=== PATIENT | female | born 1960 | race African-American/Black ===

== ENCOUNTER → 2017-04-13 | Outpatient (CLI) | payer BC ==
[~2017-04-13] MED LIST: FLUT16SP15 INH; IBUP-2029 PO; METH-612 PO
[2017-04-13 09:34] LABS: CARBON DIOXIDE 29 mEq/L (21-32); CHLORIDE 107 mEq/L (98-107); HDL CHOLESTEROL 83 mg/dL (40-59); LDL CHOLESTEROL 139 mg/dL (5-100)
== END | disposition home or self-care (01) ==
LOC: LAB 08:37
PROVIDERS: ATTEND Family Medicine Adult Medicine
DX: I10 Essential (primary) hypertension (principal); E78.5 Hyperlipidemia, unspecified
CPT/HCPCS: 36415; 80048; 80061

== ENCOUNTER → 2017-05-17 | Outpatient (CLI) | payer BC | END | disposition home or self-care (01) | LOC: MRI 13:46 | PROVIDERS: ATTEND Family Medicine Adult Medicine | DX: M17.12 Unilateral primary osteoarthritis, left knee (principal); M25.462 Effusion, left knee; M94.262 Chondromalacia, left knee | CPT/HCPCS: 73721 ==

== ENCOUNTER 2017-08-17 07:39 | Inpatient (IN) | payer BC ==
[~2017-08-17] VITALS: Ht 172.7 cm; Wt 124.3 kg
[2017-08-17] MEDS ORDERED: ONDANSETRON HCL 4MG/2ML VIAL IV ONE (08:30)
[2017-08-17 08:46] LABS: CHLORIDE 103 mEq/L (98-107)
[2017-08-17 08:51] LABS: BASOPHILS % 0.7 % (0.0-2.0); EOSINOPHILS % 3.7 % (0.0-5.0); HEMOGLOBIN. 12.9 g/dL (12.0-16.0); LYMPHOCYTES % 40.2 % (20.0-50.0); MEAN CORPUSCULAR HEMOGLOBIN 23.5 pg (28.0-32.0); MEAN CORPUSCULAR VOLUME 73.1 fL (81.0-99.0); MEAN PLATELET VOLUME 8.1 fl (7.4-10.4); MONOCYTES % 5.9 % (2.0-8.0); NEUTROPHILS % 49.5 % (40.0-76.0); PLATELET 301 x1000/uL (130-400); RED BLOOD CELL COUNT 5.47 mill/uL (4.2-5.4); RED CELL DISTRIBUTION WIDTH 18.5 % (11.6-14.6)
[2017-08-17 08:54] LABS: CARBON DIOXIDE 29 mEq/L (21-32)
[2017-08-17 09:45] LABS: CLARITY URINE CLEAR (CLEAR); COLOR URINE YELLOW (YELLOW); GLUCOSE URINE NEGATIVE (NEGATIVE); KETONES URINE NEGATIVE (NEGATIVE); LEUKOCYTE ESTERASE URINE NEGATIVE (NEGATIVE); NITRITE URINE NEGATIVE (NEGATIVE); OCCULT BLOOD URINE NEGATIVE (NEGATIVE); PH URINE 6.5 (4.5-8.0); PROTEIN URINE NEGATIVE (NEGATIVE); SPECIFIC GRAVITY URINE 1.009 (1.005-1.030); UROBILINOGEN URINE 0.2 E.U./dL (0.2-1.0)
[2017-08-17 12:00] VITALS: BP 111/66
[2017-08-17] MEDS ORDERED: ACETAMINOPHEN 325MG TABLET PO PRN (13:00)
[2017-08-17] MEDS ORDERED: ONDANSETRON HCL 4MG/2ML VIAL IV PRN (13:00)
[2017-08-17 13:54] VITALS: BP 116/64
[2017-08-17] MEDS ORDERED: TRIZANIDINE PO (14:59)
[2017-08-17] MEDS ORDERED: TELM80TA5 PO (15:02)
[2017-08-17] MEDS ORDERED: HYDR12.529 PO (15:04)
[2017-08-17] MEDS: ENOXAPARIN 30MG/0.3ML SYR SUBCUT SCH ×2 (15:16→19:40)
[2017-08-17] MEDS ORDERED: IBUPROFEN 600MG TABLET PO PRN (15:45)
[2017-08-17 16:00] VITALS: BP 118/71
[2017-08-17] MEDS ORDERED: TELMISARTAN 40 MG PO SCH (17:00)
[2017-08-17] MEDS ORDERED: FLUTICASONE PROPIONATE 50MCG/SPRAY BOTTLE BOTHNSTRLS PRN (17:00)
[2017-08-17] MEDS: MAGNESIUM/ALUMINUM HYDROXIDE/SIMETHICONE 30ML UDC PO PRN (19:39)
[2017-08-17] MEDS: LOSARTAN POTASSIUM 50 MG TABLET PO SCH (19:40)
[2017-08-17 20:00] VITALS: BP 108/41
[2017-08-18] VITALS (7 sets, daily range): BP systolic 97–129; BP diastolic 34–62
[2017-08-18] MEDS: MAGNESIUM/ALUMINUM HYDROXIDE/SIMETHICONE 30ML UDC PO PRN (04:12)
[2017-08-18 06:41] LABS: BASOPHILS % 0.7 % (0.0-2.0); EOSINOPHILS % 4.3 % (0.0-5.0); HEMATOCRIT. 38.5 % (36.0-48.0); HEMOGLOBIN. 12.5 g/dL (12.0-16.0); LYMPHOCYTES % 42.4 % (20.0-50.0); MEAN CORPUSCULAR HEMOGLOBIN 24.1 pg (28.0-32.0); MEAN PLATELET VOLUME 8.6 fl (7.4-10.4); MONOCYTES % 4.9 % (2.0-8.0); NEUTROPHILS % 47.7 % (40.0-76.0); PLATELET 295 x1000/uL (130-400); RED CELL DISTRIBUTION WIDTH 18.4 % (11.6-14.6)
[2017-08-18 07:35] LABS: CARBON DIOXIDE 29 mEq/L (21-32); CHLORIDE 102 mEq/L (98-107); TROPONIN I < 0.02 ng/mL (0.00-0.04)
[2017-08-18] MEDS: ENOXAPARIN 30MG/0.3ML SYR SUBCUT SCH ×2 (08:28→21:25)
[2017-08-18] MEDS: LOSARTAN POTASSIUM 50 MG TABLET PO SCH (09:00)
[2017-08-18] MEDS ORDERED: NA PHOS,M-B/NA PHOS,DI-BA ENEMA 118ML PR PRN (09:30)
[2017-08-18] MEDS ORDERED: LACTULOSE 20G/30ML UDC PO PRN (09:30)
[2017-08-18] MEDS: DOCUSATE SODIUM 100MG CAPSULE PO SCH ×2 (09:46→16:33)
[2017-08-18] MEDS ORDERED: HYDROCHLOROTHIAZIDE 12.5MG CAPSULE PO SCH (12:30)
[2017-08-18] MEDS ORDERED: BACLOFEN 10MG TABLET PO SCH (14:30)
[2017-08-19] VITALS (8 sets, daily range): BP systolic 100–140; BP diastolic 45–77
[2017-08-19 06:01] LABS: BASOPHILS % 0.6 % (0.0-2.0); EOSINOPHILS % 4.3 % (0.0-5.0); HEMATOCRIT. 38.4 % (36.0-48.0); HEMOGLOBIN. 12.4 g/dL (12.0-16.0); LYMPHOCYTES % 38.5 % (20.0-50.0); MEAN CORPUSCULAR HEMOGLOBIN 23.9 pg (28.0-32.0); MEAN CORPUSCULAR VOLUME 74.1 fL (81.0-99.0); MEAN PLATELET VOLUME 8.4 fl (7.4-10.4); MONOCYTES % 6.4 % (2.0-8.0); NEUTROPHILS % 50.2 % (40.0-76.0); PLATELET 287 x1000/uL (130-400); RED BLOOD CELL COUNT 5.19 mill/uL (4.2-5.4); RED CELL DISTRIBUTION WIDTH 18.2 % (11.6-14.6)
[2017-08-19 06:23] LABS: CHLORIDE 103 mEq/L (98-107)
[2017-08-19 06:40] LABS: CARBON DIOXIDE 30 mEq/L (21-32)
[2017-08-19] MEDS: DOCUSATE SODIUM 100MG CAPSULE PO SCH ×2 (08:39→16:40)
[2017-08-19] MEDS: LOSARTAN POTASSIUM 50 MG TABLET PO SCH (08:39)
[2017-08-19] MEDS: ENOXAPARIN 30MG/0.3ML SYR SUBCUT SCH ×2 (08:42→20:09)
[2017-08-19] MEDS: ACETAMINOPHEN 325MG TABLET PO PRN ×2 (11:45→20:10)
[2017-08-19 12:14] LABS: AMMONIA 30 uMol/L (<32)
[2017-08-20] VITALS (7 sets, daily range): BP systolic 102–147; BP diastolic 38–78
[2017-08-20] MEDS: ACETAMINOPHEN 325MG TABLET PO PRN (03:39)
[2017-08-20] MEDS: DOCUSATE SODIUM 100MG CAPSULE PO SCH ×2 (08:57→16:48)
[2017-08-20] MEDS: LOSARTAN POTASSIUM 50 MG TABLET PO SCH (08:57)
[2017-08-20] MEDS: ENOXAPARIN 30MG/0.3ML SYR SUBCUT SCH ×2 (08:59→20:13)
[2017-08-20] MEDS: BACLOFEN 10MG TABLET PO PRN (20:13)
[2017-08-21] VITALS: BP 117/38
[2017-08-21 04:00] VITALS: BP 106/55
[2017-08-21 06:15] LABS: BASOPHILS % 0.4 % (0.0-2.0); EOSINOPHILS % 3.5 % (0.0-5.0); HEMATOCRIT. 38.9 % (36.0-48.0); HEMOGLOBIN. 12.4 g/dL (12.0-16.0); MEAN CORPUSCULAR HEMOGLOBIN 23.8 pg (28.0-32.0); MEAN CORPUSCULAR VOLUME 74.8 fL (81.0-99.0); MEAN PLATELET VOLUME 8.4 fl (7.4-10.4); MONOCYTES % 6.9 % (2.0-8.0); NEUTROPHILS % 53.2 % (40.0-76.0); PLATELET 305 x1000/uL (130-400); RED CELL DISTRIBUTION WIDTH 17.8 % (11.6-14.6)
[2017-08-21 06:55] LABS: CARBON DIOXIDE 30 mEq/L (21-32); CHLORIDE 106 mEq/L (98-107)
[2017-08-21 08:00] VITALS: BP_SYST 124; BP_SYST 129; BP_SYST 139; BP_DIAS 56; BP_DIAS 76; BP_DIAS 85
[2017-08-21] MEDS: LOSARTAN POTASSIUM 50 MG TABLET PO SCH ×2 (09:00→09:45)
[2017-08-21] MEDS: DOCUSATE SODIUM 100MG CAPSULE PO SCH (09:45)
[2017-08-21] MEDS: ENOXAPARIN 30MG/0.3ML SYR SUBCUT SCH (09:46)
[2017-08-21] MEDS: BACLOFEN 10MG TABLET PO PRN (09:52)
[2017-08-21 13:00] VITALS: BP 141/82
[2017-08-21 16:16] VITALS: BP 141/82
== END 2017-08-21 16:39 | disposition home or self-care (01) | DRG 74 ==
LOC: ER 07:55 → 5WST 12:37 → ENRESERV 12:37
PROVIDERS: ADMIT Internal Medicine Nephrology; ATTEND Internal Medicine Nephrology
DX: G90.8 Other disorders of autonomic nervous system (principal); Z68.41 Body mass index [BMI] 40.0-44.9, adult; E66.9 Obesity, unspecified; R00.1 Bradycardia, unspecified; R26.9 Unspecified abnormalities of gait and mobility; I10 Essential (primary) hypertension; K59.00 Constipation, unspecified; I83.90 Asymptomatic varicose veins of unspecified lower extremity; J32.9 Chronic sinusitis, unspecified; M54.30 Sciatica, unspecified side; M54.40 Lumbago with sciatica, unspecified side; R35.1 Nocturia; N95.1 Menopausal and female climacteric states; R07.89 Other chest pain; Z79.899 Other long term (current) drug therapy; Z87.891 Personal history of nicotine dependence; Z90.710 Acquired absence of both cervix and uterus
CPT/HCPCS: 36415; 70450; 70544; 70553; 71010; 80048; 80053; 81003; 82140; 83735; 84443; 84484; 85025; 87040; 93005; 93306; 93880; 96374; 97162; 97166; 99285; J1650; J2405

== ENCOUNTER → 2017-09-24 | Outpatient (CLI) | payer BC ==
[~2017-09-24] MED LIST changes: +HYDR12.529 PO; -METH-612 PO; +TELM80TA5 PO; +TRIZANIDINE PO
== END | disposition home or self-care (01) ==
LOC: LAB 08:02
PROVIDERS: ATTEND Family Medicine Adult Medicine
DX: R10.9 Unspecified abdominal pain (principal)
CPT/HCPCS: 36415; 82565; 84520

== ENCOUNTER → 2017-09-25 | Outpatient (CLI) | payer BC ==
[~2017-09-25] MED LIST changes: +BARIUM SULFATE 450ML ORAL SUSP ONE; +IOHEXOL-300 100 ML BOTTLE ONE
== END | disposition home or self-care (01) ==
LOC: MAMMO 07:43
PROVIDERS: ATTEND Family Medicine Adult Medicine
DX: Z12.31 Encounter for screening mammogram for malignant neoplasm of breast (principal); K57.30 Diverticulosis of large intestine without perforation or abscess without bleeding; Z90.49 Acquired absence of other specified parts of digestive tract
CPT/HCPCS: 74176; G0202; Q9967

== ENCOUNTER 2018-02-26 06:38 | Emergency (ER) | payer BC ==
[~2018-02-26] VITALS: Ht 172.7 cm; Wt 125.0 kg
[~2018-02-26 06:38] MED LIST changes: -BARIUM SULFATE 450ML ORAL SUSP ONE; -IOHEXOL-300 100 ML BOTTLE ONE
[2018-02-26 06:50] VITALS: BP 148/81
[2018-02-26] MEDS ORDERED: ACETAMINOPHEN 325MG TABLET PO ONE (07:30)
== END 2018-02-26 09:31 | disposition home or self-care (01) ==
LOC: ER 06:38
DX: S93.402A Sprain of unspecified ligament of left ankle, initial encounter (principal); I10 Essential (primary) hypertension; Y93.01 Activity, walking, marching and hiking; Y93.89 Activity, other specified; Y92.89 Other specified places as the place of occurrence of the external cause; Y99.8 Other external cause status
CPT/HCPCS: 73610; 99284

== ENCOUNTER → 2018-04-08 | Outpatient (CLI) | payer BC | END | disposition home or self-care (01) | LOC: MRI 15:52 | PROVIDERS: ATTEND Orthopaedic Surgery | DX: M25.475 Effusion, left foot (principal) | CPT/HCPCS: 73718 ==

== ENCOUNTER → 2018-04-26 | Outpatient (CLI) | payer BC ==
[2018-04-26 09:53] LABS: CHLORIDE 106 mEq/L (98-107)
[2018-04-26 10:01] LABS: LDL CHOLESTEROL 78 mg/dL (5-100)
[2018-04-26 10:02] LABS: HDL CHOLESTEROL 76 mg/dL (40-59); T4 FREE 0.98 ng/dL (0.76-1.46)
== END | disposition home or self-care (01) ==
LOC: LAB 07:57
PROVIDERS: ATTEND Family Medicine Adult Medicine
DX: I10 Essential (primary) hypertension (principal); R53.83 Other fatigue; E78.4 Other hyperlipidemia
CPT/HCPCS: 36415; 80048; 80061; 80076; 84439; 84443

== ENCOUNTER 2018-05-22 14:45 | Emergency (ER) | payer BC ==
[~2018-05-22] VITALS: Ht 172.7 cm; Wt 135.0 kg
[2018-05-22] MEDS ORDERED: KETOROLAC 30MG/ML VIAL IM ONE (16:00)
[2018-05-22] MEDS ORDERED: METHOCARBAMOL 500MG TABLET PO ONE (16:00)
[2018-05-22] MEDS ORDERED: DIAZEPAM 5 MG TABLET PO ONE (17:00)
[2018-05-22] MEDS ORDERED: HYDROCODONE/ACETAMINOPHEN 10/325MG TABLET PO ONE (17:00)
[2018-05-22 19:59] VITALS: BP 129/51
== END 2018-05-22 20:06 | disposition home or self-care (01) ==
LOC: ER 16:47
DX: M54.89 Other dorsalgia (principal); M79.601 Pain in right arm; R20.0 Anesthesia of skin; I10 Essential (primary) hypertension; Z90.710 Acquired absence of both cervix and uterus; Z90.49 Acquired absence of other specified parts of digestive tract
CPT/HCPCS: 72141; 72146; 72148; 96372; 99284; J1885

== ENCOUNTER → 2018-10-06 | Outpatient (CLI) | payer BC ==
[~2018-10-06] MED LIST changes: -TELM80TA5 PO; +TELM80TA8 PO
[2018-10-06 14:26] LABS: BASOPHILS % 0.7 % (0.0-2.0); EOSINOPHILS % 3.1 % (0.0-5.0); HEMATOCRIT. 40.4 % (36.0-48.0); HEMOGLOBIN. 12.8 g/dL (12.0-16.0); LYMPHOCYTES % 32.7 % (20.0-50.0); MEAN CORPUSCULAR VOLUME 75.5 fL (81.0-99.0); MEAN PLATELET VOLUME 8.2 fl (7.4-10.4); MONOCYTES % 6.4 % (2.0-8.0); NEUTROPHILS % 57.1 % (40.0-76.0); PLATELET 316 x1000/uL (130-400); RED BLOOD CELL COUNT 5.35 mill/uL (4.2-5.4); RED CELL DISTRIBUTION WIDTH 17.4 % (11.6-14.6)
[2018-10-06 14:41] LABS: CHLORIDE 108 mEq/L (98-107)
[2018-10-06 14:48] LABS: LDL CHOLESTEROL 90 mg/dL (5-100)
[2018-10-06 14:49] LABS: HDL CHOLESTEROL 70 mg/dL (40-59)
== END | disposition home or self-care (01) ==
LOC: LAB 14:00
PROVIDERS: ATTEND Family Medicine Adult Medicine
DX: I10 Essential (primary) hypertension (principal); R53.83 Other fatigue; E78.49 Other hyperlipidemia
CPT/HCPCS: 36415; 80061; 82306; 84443